=== PATIENT | female | born 1950 | race Caucasian/White ===

== ENCOUNTER → 2019-04-18 | Outpatient (CLI) | payer MEDICARE ==
--- NOTE | 2019-04-18 12:33 | FL ---
EXAMINATION TYPE: FL barium swallow DATE OF EXAM: 04/18/2019 CLINICAL HISTORY: Gastroesophageal reflux TECHNIQUE: A double contrast esophagram is performed utilizing air and barium. A total of 59 second s of fluoroscopic time was utilized during procedure. 39 fluoroscopic images were saved during the ex amination. COMPARISON: None FINDINGS: The esophagus shows normal motility however there is delayed emptying into the stomach as t here is accumulation persistently throughout the examination within a small hiatal hernia. No tertiar y contractions are seen. Incidentally noted cricopharyngeal bar. Moderate grade gastroesophageal refl ux was seen on real-time examination in the supine position. No stricture is noted. Esophageal mucosa appears overall smooth. IMPRESSION: 1. Small hiatal hernia with moderate gastroesophageal reflux. 2. Incidentally noted cricopharyngeal bar.
== END | disposition home or self-care (01) ==
LOC: RADUSWWP 10:02
PROVIDERS: ATTEND Surgery Plastic and Reconstructive Surgery
DX: K44.9 Diaphragmatic hernia without obstruction or gangrene (principal); K21.9 Gastro-esophageal reflux disease without esophagitis; Z01.810 Encounter for preprocedural cardiovascular examination
CPT/HCPCS: 74220; 93005

== ENCOUNTER 2019-05-23 08:30 | Day surgery (SDC) | payer MEDICARE ==
[2019-05-21 11:23] VITALS: BMI 30.2
--- NOTE | 2019-05-23 05:12 | P.GSHP ---
History of Present Illness H&P Date: 05/23/19 CHIEF COMPLAINT: GERD HISTORY OF PRESENT ILLNESS: The patient is a 68-year-old female who presents reports gastroesophageal reflux disease. Upper endoscopy was offered for further evaluation and management. PAST MEDICAL HISTORY: Please see list. PAST SURGICAL HISTORY: Please see list. MEDICATIONS: Please see list. ALLERGIES: Please see list. SOCIAL HISTORY: No illicit drug use FAMILY HISTORY: No reports of Crohn disease or ulcerative colitis. REVIEW OF ORGAN SYSTEMS: CONSTITUTIONAL: No reports of fevers or chills. GI: Denies any blood in stools or constipation. PHYSICAL EXAM: VITAL SIGNS: Stable GENERAL: Well-developed and pleasant in no acute distress. HEENT: No scleral icterus. Extraocular movements grossly intact. Moist buccal mucosa. NECK: Supple without lymphadenopathy. CHEST: Unlabored respirations. Equal bilateral excursions. CARDIOVASCULAR: Regular rate and rhythm. Distal 2+ pulses. ABDOMEN: Soft, nondistended. MUSCULOSKELETAL: No clubbing, cyanosis, or edema. ASSESSMENT: 1. Gastroesophageal reflux disease PLAN: 1. Recommend proceeding with an upper endoscopy Past Medical History Past Medical History: Cancer, GERD/Reflux, Hearing Disorder / Deafness, Hyperlipidemia, Osteoarthritis (OA) Additional Past Medical History / Comment(s): BREAST CANCER,CERVICAL CANCER, UTERINE CANCER, [place] History of Any Multi-Drug Resistant Organisms: None Reported Past Surgical History: Breast Surgery, Hysterectomy, Tonsillectomy Additional Past Surgical History / Comment(s): LIPOMA REMOVED FROM UPPER BACK,LEFT LUMPECTOMY, EAR SURGERY RIGHT AND LEFT, CATARACT RIGHT EYE WITH IMPLANT Past Anesthesia/Blood Transfusion Reactions: No Reported Reaction Smoking Status: Former smoker - Past Family History Mother Family Medical History: Cancer Father Family Medical History: Cancer Sister(s) Family Medical History: Cancer Medications and Allergies Home Medications Medication Instructions Recorded Confirmed Type Fosamax Unknown Dose 1 tab PO BLACK 05/21/19 History Levothyroxine Sodium [Synthroid] 150 mcg PO DAILY 05/21/19 05/21/19 History Omeprazole [PriLOSEC] 20 mg PO AC-BID 05/21/19 05/21/19 History Pravastatin Sodium [Pravachol] 20 mg PO HS 05/21/19 05/21/19 History Allergies Allergy/AdvReac Type Severity Reaction Status Date / Time No Known Allergies Allergy Verified 05/21/19 10:56
[~2019-05-23 08:30] MED LIST: LACTATED RINGERS 1,000 ML IV SCH; LIDOCAINE 1% 20 ML VIAL (10MG/ML) FOR IV START INTRADERMA PRN
[2019-05-23] MEDS ORDERED: PROPOFOL 10 MG/ML 20 ML VIAL IV ONE (09:14)
--- NOTE | 2019-05-23 09:35 | P.PCN ---
Date of Procedure: 05/23/19 Description of Procedure: PREOPERATIVE DIAGNOSIS: Gastroesophageal reflux disease. Hiatal hernia POSTOPERATIVE DIAGNOSIS: Gastroesophageal reflux disease. Diaphragmatic hiatal hernia Anguiano's esophagus OPERATION: Esophagogastroduodenoscopy with biopsies along antrum and distal esophagus SURGEON: Kimber Rodriguez MD ANESTHESIA: MAC. INDICATIONS: The patient is a 68-year-old female who presents with a history of reflux disease. Benefits and risks of the procedure were described. Informed consent was obtained. DESCRIPTION: The patient was brought into the endoscopy suite and laid in the left lateral decubitus position. An Olympus gastroscope was passed along the posterior oropharynx down to the distal esophagus where the squamocolumnar junction was encountered at 34 cm from the incisors. The stomach was entered and no bile reflux was found. Additional findings are listed below. Biopsies with cold forceps were obtained of the antrum. The first through third portion of the duodenum was examined and unremarkable. Retroflexion of the scope confirmed Hill grade 4 lower esophageal valve. The squamocolumnar junction demonstrated LA grade D erosive esophagitis. The stomach was desufflated. The patient tolerated the procedure well. FINDINGS: Squamocolumnar junction 34 cm from the incisors. Diaphragmatic hiatus at 37 cm. Hiatal hernia, 3 cm Hill grade 4 lower esophageal valve. LA grade D erosive esophagitis. No active duodenitis. Chronic gastritis RECOMMENDATIONS: Recommend hiatal hernia repair with Anguiano's esophagus Plan - Discharge Summary Discharge Rx Participant: No New Discharge Prescriptions: No Action Omeprazole [PriLOSEC] 20 mg PO AC-BID Pravastatin Sodium [Pravachol] 20 mg PO HS Levothyroxine Sodium [Synthroid] 150 mcg PO DAILY Fosamax Unknown Dose 70 mg PO WEEKLY Discharge Medication List Fosamax Unknown Dose 70 mg PO WEEKLY 05/21/19 [History] Levothyroxine Sodium [Synthroid] 150 mcg PO DAILY 05/21/19 [History] Omeprazole [PriLOSEC] 20 mg PO AC-BID 05/21/19 [History] Pravastatin Sodium [Pravachol] 20 mg PO HS 05/21/19 [History] Follow up Appointment(s)/Referral(s): Kimber Rodriguez MD [STAFF PHYSICIAN] - 05/29/19 Patient Instructions/Handouts: Anguiano Esophagus (DC), Hiatal Hernia (DC) Discharge Disposition: HOME SELF-CARE
[2019-05-23 09:47] VITALS: RESP 16
[2019-05-23 09:58] VITALS: BP 135/66; PULSE 70
== END 2019-05-23 10:17 | disposition home or self-care (01) ==
LOC: ORWHC2ENDO 08:30
PROVIDERS: ATTEND Surgery Plastic and Reconstructive Surgery
DX: K29.50 Unspecified chronic gastritis without bleeding (principal); K22.70 Barrett's esophagus without dysplasia; K21.0 Gastro-esophageal reflux disease with esophagitis; K44.9 Diaphragmatic hernia without obstruction or gangrene; H91.90 Unspecified hearing loss, unspecified ear; E78.5 Hyperlipidemia, unspecified; M19.90 Unspecified osteoarthritis, unspecified site; Z87.891 Personal history of nicotine dependence; Z85.3 Personal history of malignant neoplasm of breast; Z85.41 Personal history of malignant neoplasm of cervix uteri; Z85.42 Personal history of malignant neoplasm of other parts of uterus; Z98.890 Other specified postprocedural states; Z90.710 Acquired absence of both cervix and uterus; Z90.89 Acquired absence of other organs; Z98.41 Cataract extraction status, right eye; Z96.1 Presence of intraocular lens; Z79.83 Long term (current) use of bisphosphonates; Z79.890 Hormone replacement therapy; Z79.899 Other long term (current) drug therapy; Z80.9 Family history of malignant neoplasm, unspecified
CPT/HCPCS: 88305; 88342; 43239; J2704

== ENCOUNTER → 2019-07-23 | Outpatient (CLI) | payer MEDICARE ==
[2019-07-23 09:40] LABS: HCT 44.5 % (34.0-46.0); HGB 14.4 gm/dL (11.4-16.0); MCH 29.9 pg (25.0-35.0); MCHC 32.4 g/dL (31.0-37.0); MCV 92.3 fL (80.0-100.0); Mean Platelet Volume 7.2; Platelet Count 283 k/uL (150-450); RBC 4.82 m/uL (3.80-5.40); RDW 12.7 % (11.5-15.5); WBC 7.4 k/uL (3.8-10.6)
== END | disposition home or self-care (01) ==
LOC: LABPAT 08:49
PROVIDERS: ATTEND Anesthesiology
DX: Z01.812 Encounter for preprocedural laboratory examination (principal)
CPT/HCPCS: 36415; 85027

== ENCOUNTER 2019-07-27 11:58 | Day surgery (SDC) | payer MEDICARE ==
--- NOTE | 2019-07-26 20:25 | P.GSHP ---
History of Present Illness H&P Date: 07/27/19 CHIEF COMPLAINT: Paraesophageal hiatal hernia with gastroesophageal reflux disease. HISTORY OF PRESENT ILLNESS: The patient is a 68-year-old female who presents with paraesophageal hiatal hernia. She has completed an esophageal manometry including upper endoscopy workup. Now she presents for surgical intervention. PAST MEDICAL HISTORY: Please see list. PAST SURGICAL HISTORY: Please see list. MEDICATIONS: Please see list. ALLERGIES: Please see list. SOCIAL HISTORY: No illicit drug use FAMILY HISTORY: No reports of Crohn disease or ulcerative colitis. REVIEW OF ORGAN SYSTEMS: CONSTITUTIONAL: No reports of fevers or chills. GI: Denies any blood in stools or constipation. PHYSICAL EXAM: VITAL SIGNS: Stable GENERAL: Well-developed pleasant and in no acute distress. HEENT: No scleral icterus. Extraocular movements grossly intact. Moist buccal mucosa. NECK: Supple without lymphadenopathy. CHEST: Unlabored respirations. Equal bilateral excursions. CARDIOVASCULAR: Regular rate and rhythm. Distal 2+ pulses. ABDOMEN: Soft, nondistended. No peritoneal signs. MUSCULOSKELETAL: No clubbing, cyanosis, or edema. SKIN: Well-perfused. Good skin turgor. MANOMETRY: Shows no evidence of achalasia or scleroderma. ASSESSMENT: 1. Diaphragmatic paraesophageal hiatal hernia with severe gastroesophageal reflux disease. PLAN: 1. Recommend proceeding with a robotic paraesophageal hiatal hernia with possible mesh. 2. Benefits and risks of surgical intervention was discussed including possibility of open technique. 3. Inpatient hospitalization recommended of 2 nights 4. DVT prophylaxis. 5. Antibiotic prophylaxis. 6. She has also completed a very low caloric high-protein diet to address underlying hepatomegaly. Past Medical History Past Medical History: Cancer, GERD/Reflux, Hearing Disorder / Deafness, Hyperlipidemia, Osteoarthritis (OA), Thyroid Disorder Additional Past Medical History / Comment(s): BREAST CANCER,CERVICAL CANCER, UTERINE CANCER, [place] History of Any Multi-Drug Resistant Organisms: None Reported Past Surgical History: Breast Surgery, Hysterectomy, Tonsillectomy Additional Past Surgical History / Comment(s): LIPOMA REMOVED FROM UPPER BACK,LEFT LUMPECTOMY, EAR SURGERY RIGHT AND LEFT, CATARACT RIGHT EYE WITH IMPLANT, egd Past Anesthesia/Blood Transfusion Reactions: No Reported Reaction Smoking Status: Former smoker - Past Family History Mother Family Medical History: Cancer Father Family Medical History: Cancer Sister(s) Family Medical History: Cancer Medications and Allergies Home Medications Medication Instructions Recorded Confirmed Type Levothyroxine Sodium [Synthroid] 150 mcg PO DAILY 05/21/19 07/20/19 History Omeprazole [PriLOSEC] 20 mg PO AC-BID 05/21/19 07/20/19 History Pravastatin Sodium [Pravachol] 20 mg PO DAILY 05/21/19 07/20/19 History Alendronate Sodium [Fosamax] 70 mg PO TH 07/20/19 07/20/19 History Allergies Allergy/AdvReac Type Severity Reaction Status Date / Time No Known Allergies Allergy Verified 05/21/19 10:56
[~2019-07-27 11:58] MED LIST changes: +CHLORHEXIDINE GLUCONATE 15 ML CUP MUCOUS MEM ONE; +DEXAMETHASONE SOD PHOSPHATE 10 MG/ML 1 ML VIAL IV ONE; +HEPARIN SODIUM,PORCINE 5,000 UNIT/ML 1 ML VIAL SQ ONE; +HYDROmorphone 0.5 MG/0.5 ML SYRINGE IVP PRN; -LACTATED RINGERS 1,000 ML IV SCH; +ONDANSETRON 4 MG/2 ML VIAL IVP ONE; +PANTOPRAZOLE 40 MG/10 ML VIAL IV STA; +SCOPOLAMINE 1.5MG/72HR PATCH TRANSDERM STA; +fentaNYL (PF) 50 MCG/ML 2 ML AMP IV PRN
[2019-07-27] MEDS: LACTATED RINGERS 1,000 ML IV SCH ×2 (12:49→23:53)
[2019-07-27] MEDS ORDERED: ROCURONIUM BROMIDE 10 MG/ML 10 ML VIAL IV ONE (13:33)
[2019-07-27] MEDS ORDERED: fentaNYL (PF) 50 MCG/ML 2 ML AMP ONE (13:33)
[2019-07-27] MEDS ORDERED: ePHEDrine SULFATE/0.9% NACL/PF 50 MG/5 ML SYRINGE IV ONE (13:33)
[2019-07-27] MEDS ORDERED: PROPOFOL 10 MG/ML 20 ML VIAL IV ONE (13:33)
[2019-07-27] MEDS ORDERED: NEOSTIGMINE 1 MG/ML 10 ML VIAL ONE (13:33)
[2019-07-27] MEDS ORDERED: WATER FOR INJECTION, STERILE 10 ML VIAL IV ONE (13:33)
[2019-07-27] MEDS ORDERED: GLYCOPYRROLATE 0.2 MG/ML 2 ML VIAL ONE (13:33)
[2019-07-27] MEDS ORDERED: MIDAZOLAM 2 MG/2 ML VIAL ONE (13:33)
[2019-07-27] MEDS ORDERED: SUCCINYLCHOLINE CHLORIDE 100 MG/5 ML SYR IV ONE (13:33)
[2019-07-27] MEDS ORDERED: LIDOCAINE 1% INJ 10MG/ML (20 ML MDV) ONE (13:33)
[2019-07-27 13:35] LABS: African American GFR (CKD) >90 (>60 ml/min/1.73 sqM); Anion Gap 10 mmol/L; Blood Urea Nitrogen 15 mg/dL (7-17); Calcium 9.4 mg/dL (8.4-10.2); Carbon Dioxide 22 mmol/L (22-30); Chloride 108 mmol/L (98-107); Glucose 107 mg/dL (74-99); Non-African American GFR(CKD) >90 (>60 ml/min/1.73 sqM); Sodium 140 mmol/L (137-145)
[2019-07-27] MEDS ORDERED: BUPIVACAIN-EPI 0.25%-1:200,000 30 ML VIAL SQ ONE (13:58)
[2019-07-27] MEDS ORDERED: LACTATED RINGERS 1,000 ML IV ONE ×2 (14:52)
--- NOTE | 2019-07-27 15:40 | P.OP ---
Date of Procedure: 07/27/19 Description of Procedure: SURGEON: BHARATI RODRIGUEZ MD PREOPERATIVE DIAGNOSES: 1. Symptomatic paraesophageal diaphragmatic hiatal hernia. 2. Gastroesophageal reflux disease. 3. Anguiano's esophagus 4. Hypothyroidism 5. Osteoporosis 6. History of uterine cancer 7. Dysphagia POSTOPERATIVE DIAGNOSES: 1. Symptomatic paraesophageal diaphragmatic hiatal hernia, incarcerated 5 x 4 cm 2. Gastroesophageal reflux disease. 3. Anguiano's esophagus 4. Hypothyroidism 5. Osteoporosis 6. History of uterine cancer 7. Dysphagia OPERATION: 1. Robotic-assisted da Leilani Xi laparoscopic repair of incarcerated paraesophageal hiatal hernia, 5 x 4 cm, with Luverne Biopatch A 8 x 8 cm. 2. Intraoperative esophagogastroduodenoscopy 3. Placement of esophageal bougie, 56Fr ANESTHESIA: General with local anesthetic. ESTIMATED BLOOD LOSS: 10 mL SPECIMENS REMOVED: 1. Mediastinal and distal esophageal mass 5 cm COMPLICATIONS: None. Condition: stable Disposition: floor FINDINGS: 1. Midline incarcerated paraesophageal hiatal hernia 5 x 4 cm 2. Intraoperative upper endoscopy confirms complete closure of hiatal hernia from Hill grade 4 to Hill grade 1 3. No duodenal or gastric ulcers 4. Hiatus at 35 cm 5. Anguiano's esophagus, over 3 cm segment INDICATIONS: The patient is a 68-year-old female who presents with regurgitation, gastroesophageal reflux disease poorly controlled despite medications, and a symptomatic diaphragmatic hiatal hernia. Preoperative workup including upper endoscopy demonstrated a Hill grade 4 lower esophageal valve. Given the severity of symptoms, she had elected for surgical intervention. Benefits and risks including bleeding, infection, recurrence, dysphagia, injury to the lung, need for further surgery was described at length. Informed consent was obtained. DESCRIPTION: The patient was brought into the operating room and placed in supine position. Preoperatively she had received heparin subcutaneously for DVT prophylaxis. After general induction, the abdomen was prepped and draped in standard sterile fashion. The patient had previously voided prior to coming to the operating room. Ioban draping was placed along the abdomen. A timeout protocol was confirmed with the surgical team, for which the patient's name, procedure to be performed including DVT prophylaxis with bilateral SCDs, and preoperative antibiotics were also confirmed. A robotic da Leilani Xi system was prepped and primed. At 12 cm from the xiphoid to just below the umbilicus, proposed port sites were marked with indelible marker along the left axillary line, left mid-clavicular line with each ports were marked 10 cm from each other. A 5 mm 0 degrees l aparoscopic trocar entry was performed along the left upper quadrant. The abdomen was insufflated to 15 mmHg pressure was tolerated well. Diagnostic laparoscopy demonstrated no injury to bowel, viscera, or mesentery. No injury had occurred to the small bowel or viscera. Next, one 8 mm robotic port was placed along the right upper abdomen. An 8-mm port was were placed along the left lateral abdominal wall. The camera 8-mm port was maintained along the epigastrium via the hernia defect. Another 12 mm port was placed along the left upper abdominal wall after exchanging the 5 mm port. Please note that the ports were placed at least 20 cm away from the target anatomy. Care was taken to check that each robotic arm were safely away from collision with the bed or the patient. At the epigastrium, a medium sized Danae liver retractor was placed under direct visualization with the [employer] Tester placed under the right shoulder of the patient. All robotic arms were used. The patient was repositioned in reverse Trendelenburg position at 16-degrees after lowering the bed. The robot was docked above the right side of the patient. Using a grasper for arm 3, a grasper for arm 1, including vessel sealer for arm 2, the robotic system was docked and primed as described. Instruments were interchanged by the environmental engineering assistant. I had sat at the console. The gastrohepatic ligament was cleaved using a vessel sealer. Next, the phrenoesophageal ligament was mobilized and the distal esophagus was mobilized circumferentially. The left and right crura was identified. Circumferentially, the hernia sac was excised and brought into the peritoneal cavity. Moderate dissection into the mediastinum was performed to release the esophagus into the abdominal cavity. The paraesophageal hiatal hernia sac was also incised and divided from the esophagus. Care was taken to avoid any gastrotomy. The measured defect was consistent with 5 cm axial length and 4 cm in width. After dissection, the distal esophagus of 3 cm was brought into the abdominal cavity. Once the hiatus and crura was dissected, 2-0 VLOC suture was placed to reapproximate the diaphragmatic hiatus posteriorly. To buttress the repair, a Lu[place] Biopatch A was prepared along the back table and cut in half of a bernabe-hole fashion as to reinforce the repair as an underlay. The mesh was placed along the crural repair and tagged using horizontal mattress sutures using 2-0 VLOC. I went to the head of the bed to perform intraoperative esophagogastroduodenoscopy and placement of a 56Fr bougie. The bougie was passed without difficulty to address pre-existing dysphagia and esophageal dysmotility. An Olympus gastroscope was passed through posterior oropharynx. Retroflexion of the scope confirmed a Hill grade 1 lower esophageal valve. The stomach had been desufflated. No evidence of leaks were found of the esophagus or stomach. The squamocolumnar junction and hiatus was placed at 35 cm from the incisors. The GI tract with desufflated This concluded the endoscopic portion of the case. The robot was undocked from the patient. I re-scrubbed into the case. All instruments and pneumoperitoneum and specimens were evacuated from the abdominal cavity. Incisions were reapproximated using 4-0 Monocryl in an interrupted subcuticular fashion. Liquid glue was applied to the skin. Local anesthetic was infiltrated in all wounds for postop analgesia. Multiple intra-abdominal films were obtained. At the end of the procedure, needle, sponge, and instrument count was verified correct by the nursing surgical services director. The patient had tolerated the procedure well and was taken to the postanesthesia unit in stable condition. Intraoperative films were reviewed with the patient's family who was pleased with the level of care. Console time 49 minutes.
[2019-07-27] MEDS ORDERED: ACETAMINOPHEN ORAL SUSP 160 MG/5 ML CUP PO PRN (15:42)
[2019-07-27] MEDS ORDERED: HYDROmorphone 1 MG/ML 1 ML SYRINGE IVP PRN (15:44)
[2019-07-27] MEDS ORDERED: SCOPOLAMINE 1.5MG/72HR PATCH TRANSDERM ONE (17:00)
[2019-07-27] MEDS: SODIUM CHLORIDE 0.9% 1,000 ML IV SCH ×2 (17:51→20:46)
[2019-07-27] MEDS: SIMETHICONE 40 MG/0.6 ML DROPS 2,000 MG/30 ML BOTTLE PO SCH ×2 (17:56→20:09)
[2019-07-27] MEDS: KETOROLAC 30 MG/ML 1 ML VIAL IVP SCH ×2 (17:57→23:54)
[2019-07-27] MEDS: DEXAMETHASONE SOD PHOSPHATE 4 MG/ML 1 ML VIAL IV SCH (17:58)
[2019-07-27] MEDS: ONDANSETRON 4 MG/2 ML VIAL IVP SCH ×2 (17:59→23:57)
[2019-07-28] MEDS: DEXAMETHASONE SOD PHOSPHATE 4 MG/ML 1 ML VIAL IV SCH ×3 (00:04→11:19)
[2019-07-28] MEDS: KETOROLAC 30 MG/ML 1 ML VIAL IVP SCH ×2 (05:31→11:21)
[2019-07-28] MEDS: ONDANSETRON 4 MG/2 ML VIAL IVP SCH ×2 (05:40→11:19)
[2019-07-28] MEDS ORDERED: LEVOTHYROXINE 75 MCG TAB PO SCH (06:30)
[2019-07-28 07:29] LABS: African American GFR (CKD) >90 (>60 ml/min/1.73 sqM); Anion Gap 5 mmol/L; Blood Urea Nitrogen 10 mg/dL (7-17); Calcium 8.5 mg/dL (8.4-10.2); Carbon Dioxide 26 mmol/L (22-30); Chloride 111 mmol/L (98-107); Glucose 144 mg/dL (74-99); Non-African American GFR(CKD) >90 (>60 ml/min/1.73 sqM); Potassium 4.3 mmol/L (3.5-5.1); Sodium 142 mmol/L (137-145)
[2019-07-28 07:45] VITALS: BP 116/76; PULSE 92; RESP 17; TEMP 97.7
--- NOTE | 2019-07-28 07:46 | FL ---
EXAMINATION TYPE: FL esophagus cervic/pharynx DATE OF EXAM ORDERED: 07/28/2019 7:30 AM HISTORY: Status post Monica fundoplication. COMPARISON: None. FINDINGS: The patient drank contrast with ease. There is prompt egress of contrast from the esophagu s into the stomach. There is no evidence of extravasation or significant free air. The ligament of Tr eitz is in the normal location. IMPRESSION: STATUS POST MONICA FUNDOPLICATION.
[2019-07-28] MEDS ORDERED: ENOXAPARIN 30 MG/0.3 ML SYRINGE SQ SCH (09:00)
[2019-07-28] MEDS ORDERED: PANTOPRAZOLE 40 MG/10 ML VIAL IVP SCH (09:00)
[2019-07-28] MEDS: SIMETHICONE 40 MG/0.6 ML DROPS 2,000 MG/30 ML BOTTLE PO SCH ×2 (09:04→11:21)
[2019-07-28] MEDS: SODIUM CHLORIDE 0.9% 1,000 ML IV SCH (09:05)
--- NOTE | 2019-07-28 12:00 | P.DS ---
Providers Date of admission: 07/27/2019 Expected date of discharge: 07/28/19 Attending physician: Kimber Rodriguez Primary care physician: [facility] Course: This is a 69-year-old female who underwent laparoscopic robotic Hiatal hernia with Dr. Newby. Patient did well postoperative. Please see hospital chart for details. Patient Condition at Discharge: Good Plan - Discharge Summary Discharge Rx Participant: No New Discharge Prescriptions: New Bisacodyl [Dulcolax] 5 mg PO DAILY PRN #10 tablet. PRN Reason: Constipation Simethicone 40 mg/0.6 ml Drops [Mylicon Drops] 40 mg PO PCHS PRN #30 ml PRN Reason: Gas Omeprazole 40 mg PO DAILY #30 capsule. Ondansetron Odt [Zofran Odt] 4 mg PO Q8HR PRN #9 tab PRN Reason: Nausea Acetaminophen Oral Susp [Tylenol Oral Susp] 500 mg PO Q4-6H PRN #400 ml PRN Reason: Pain Continue Pravastatin Sodium [Pravachol] 20 mg PO DAILY Levothyroxine Sodium [Synthroid] 150 mcg PO DAILY Alendronate Sodium [Fosamax] 70 mg PO TH Discontinued Omeprazole [PriLOSEC] 20 mg PO AC-BID Discharge Medication List Levothyroxine Sodium [Synthroid] 150 mcg PO DAILY 05/21/19 [History] Pravastatin Sodium [Pravachol] 20 mg PO DAILY 05/21/19 [History] Alendronate Sodium [Fosamax] 70 mg PO TH 07/20/19 [History] Acetaminophen Oral Susp [Tylenol Oral Susp] 500 mg PO Q4-6H PRN #400 ml 07/27/19 [Rx] Bisacodyl [Dulcolax] 5 mg PO DAILY PRN #10 tablet. 07/27/19 [Rx] Omeprazole 40 mg PO DAILY #30 capsule. 07/27/19 [Rx] Ondansetron Odt [Zofran Odt] 4 mg PO Q8HR PRN #9 tab 07/27/19 [Rx] Simethicone 40 mg/0.6 ml Drops [Mylicon Drops] 40 mg PO PCHS PRN #30 ml 07/27/19 [Rx] Follow up Appointment(s)/Referral(s): Kimber Rodriguez MD [STAFF PHYSICIAN] - 07/31/19 Patient Instructions/Handouts: Laparoscopic Hiatal Hernia Repair (DC) Activity/Diet/Wound Care/Special Instructions: Liquid diet only. No carbonated beverages. No straws. No lifting over 4 pounds in 4 weeks, Aug 27. May shower. No bath tub soaks. May take [id number] Tylenol or Aleve for pain. Do not remove scopolamine patch for 3 days, if present Discharge Disposition: HOME SELF-CARE
[2019-07-28 14:17] VITALS: BMI 28.2
== END 2019-07-28 15:46 | disposition home or self-care (01) ==
LOC: OR 11:58 → 4SSUR 15:37 → OR 07-28 15:46
PROVIDERS: ATTEND Surgery Plastic and Reconstructive Surgery
DX: K44.9 Diaphragmatic hernia without obstruction or gangrene (principal); K21.9 Gastro-esophageal reflux disease without esophagitis; K22.70 Barrett's esophagus without dysplasia; E78.5 Hyperlipidemia, unspecified; R16.0 Hepatomegaly, not elsewhere classified; E03.9 Hypothyroidism, unspecified; M81.0 Age-related osteoporosis without current pathological fracture; M19.90 Unspecified osteoarthritis, unspecified site; H91.90 Unspecified hearing loss, unspecified ear; Z85.3 Personal history of malignant neoplasm of breast; Z85.41 Personal history of malignant neoplasm of cervix uteri; Z85.42 Personal history of malignant neoplasm of other parts of uterus; Z79.890 Hormone replacement therapy; Z79.899 Other long term (current) drug therapy; Z98.890 Other specified postprocedural states; Z90.710 Acquired absence of both cervix and uterus; Z98.41 Cataract extraction status, right eye; Z96.1 Presence of intraocular lens; Z87.891 Personal history of nicotine dependence; Z80.9 Family history of malignant neoplasm, unspecified
CPT/HCPCS: 80048 ×2; 74210; 43282; C1781; J2250; J1644; J1100 ×3; J2710; J0690 ×2; J2405 ×2; J2001; J3010; J1885 ×2; J1650; J0330; J2704; C9113 ×2; Q9967

== ENCOUNTER → 2022-12-16 | Day surgery (SDC) | payer MEDICARE ==
[2022-12-16 07:32] VITALS: RESP 16
--- NOTE | 2022-12-16 08:48 | P.GSHP ---
History of Present Illness H&P Date: 12/16/22 Chief Complaint: Right breast microcalcifications of concern on radiograph from [id number] Kassandra is a 71-year-old white female seen in consultation for Jessica Lucio regarding calcifications of concern on a right breast mammogram performed in May 2022. She had a bilateral mammogram on which led to additional views of the right breast. The patient states she then went to [place]; and in [place] she had a repeat right breast mammogram, they also did an ultrasound. She was told to wait 6 months to see if it changed. This was done in October 2022. She presents here today for further evaluation of the calcifications which had originally been noted on the May mammogram of her right breast. The patient does not feel any lumps masses or nodules of concern in either breast. She has had a left breast lumpectomy and sentinel node biopsy in approximately 1993, she does not remember who the surgeon was at this stage of the disease.. She did receive radiation therapy. She did not receive any chemotherapy or hormone therapy. She is not following with any bibliographic services specialist with respect to this. She has not had any other surgery on her breasts. She is not complaining of any recent trauma or infection of the breast. Caffeine: coffee 4 cups/day nicotine: none stopped in 2009 used to smoke 1 Pack/week chocolate: occasional BCP: about 2 years Family History: mother: at 35 ? type think stomach cancer father: colon, thyroid, and a third type ? type sister: pancreatic within 3 weeks Hormonal History: menarche: 15 breast fed: no, age at first : 23 menopause: hysterectomy at 46 took ovaries, done for precancer Surgical History: Right eye cataract lens implant Left breast lumpectomy and sentinel node biopsy Total abdominal hysterectomy Lipoma posterior neck Bilateral ear surgery for tumors Hiatal hernia Tonsillectomy Medical History: hypothryoid decreased hearing GERD high cholesterol Social History: nicotine: as above alcohol: 2/year drugs:none - Constitutional Constitutional: Denies chills, Denies fever - EENT Eyes: right as per HPI Ears: bilateral: decreased hearing, tinnitus Ears, nose, mouth and throat: Denies headache, Denies sore throat - Breasts Breasts: bilateral: as per HPI - Cardiovascular Cardiovascular: Reports shortness of breath - Respiratory Respiratory: Denies cough, Denies 7 - Gastrointestinal Gastrointestinal: Reports as per HPI - Genitourinary (Female) Genitourinary: Denies dysuria, Denies hematuria - Menstruation Menstruation: Reports post hysterectomy - Musculoskeletal Musculoskeletal: Reports myalgias - Integumentary Integumentary: Reports pruritus, Reports rash - Neurological Neurological: Denies numbness, Denies weakness - Psychiatric Psychiatric: Denies anxiety, Denies depression - Endocrine Endocrine: Reports as per HPI - Hematologic/Lymphatic Comment: none - Allergic/Immunologic Allergic/Immunologic: Reports seasonal allergies Past Medical History Past Medical History: Cancer, GERD/Reflux, Hearing Disorder / Deafness, Hyperlipidemia, Osteoarthritis (OA), Thyroid Disorder Additional Past Medical History / Comment(s): Left BREAST CANCER,CERVICAL CANCER, UTERINE CANCER, [place] History of Any Multi-Drug Resistant Organisms: None Reported Past Surgical History: Breast Surgery, Hysterectomy, Tonsillectomy Additional Past Surgical History / Comment(s): LIPOMA REMOVED FROM UPPER BACK,LEFT LUMPECTOMY with radiation. EAR SURGERY RIGHT AND LEFT, CATARACT RIGHT EYE WITH IMPLANT, egd Past Anesthesia/Blood Transfusion Reactions: No Reported Reaction Past Psychological History: No Psychological Hx Reported Smoking Status: Former smoker Past Alcohol Use History: Rare Additional Past Alcohol Use History / Comment(s): STARTED SMOKING AT AGE 17 SMOKED ON AND OFF QUIT SMOKING 2000 SMOKED 1 CIG A DAY Past Drug Use History: None Reported - Past Family History Mother Family Medical History: Cancer Father Family Medical History: Cancer Sister(s) Family Medical History: Cancer Medications and Allergies Home Medications Medication Instructions Recorded Confirmed Type Levothyroxine Sodium [Synthroid] 88 mcg PO DAILY 05/21/19 12/16/22 History Pravastatin Sodium [Pravachol] 20 mg PO DAILY 05/21/19 12/16/22 History Omeprazole 40 mg PO DAILY #30 capsule. 07/27/19 12/16/22 Rx Allergies Allergy/AdvReac Type Severity Reaction Status Date / Time No Known Allergies Allergy Verified 12/16/22 07:19 Surgical - Exam Vital Signs Temp Pulse Resp BP 97.6 F 69 16 118/80 12/16/22 07:21 12/16/22 07:21 12/16/22 07:21 12/16/22 07:21 - General no distress - Eyes normal ocular movement - ENT decreased hearing - Neck trachea midline - Respiratory normal respiratory effort, clear to auscultation - Cardiovascular Rhythm: regular Heart Sounds: normal: S1, S2 - Abdomen Abdomen: soft, non tender, no guarding, no rigid, no rebound - Integumentary normal turger - Neurologic no disoriented, no combative - Musculoskeletal normal gait - Psychiatric oriented to time, oriented to person, oriented to place, speech is normal, memory intact Breast Exam: BRA: 38C Inspection: Left breast smaller than right breast related to prior lumpectomy and radiation therapy, right nipple inversion Palpation: Right breast: Multi-positional examination no dominant masses or nodules of concern, dense breast Right axilla: No adenopathy of concern, nipple is inverted on the right Left breast: Post surgical and radiation changes, multiple positional exam no dominant masses or nodules of concern Left axilla: No adenopathy of concern Results Mammogram is been repeated today this is going to be reviewed Assessment and Plan Assessment: Impression: Patient with a prior history of left breast cancer pathology will be requested Abnormal right breast mammogram this is been repeated today and will be reviewed Strong family history of cancer Plan: Depending on results of mammogram today potential stereotactic core biopsy of the right breast Patient is going to have genetic testing secondary to strong family history of cancer Risks and benefits of stereotactic core biopsy of been discussed with the patient, her sister, and her daughter. Risks include but are not limited to bleeding, infection, reaction to the anesthetic. The patient understands of the tissue sample were to be discordant and its possible to further tissue sampling would be necessary. CC: Jessica Lucio
[2022-12-16 09:54] VITALS: BP 138/83; PULSE 67; TEMP 98.1
--- NOTE | 2022-12-16 16:50 | MM ---
Reason for Exam: Follow-up at short interval from prior study. Last screening mammogram was performed 3 month(s) ago. Patient History: Menarche at age 15. First Full-Term at age 23. Left ovary removed at age 46. Right ovary removed at age 46. Hysterectomy at age 46. Postmenopausal. Breast cancer, left, age 43. Ovarian cancer, age 46. Breast cancer, left, age 42. Previous chest radiation therapy at age 43. 1993, Malignant Excisional Biopsy on the left side. Prior Study Comparison: 09/08/2022 Right Diagnostic Mammogram, [facility]. Tissue Density: Right: The breast tissue is heterogeneously dense. This may lower the sensitivity of mammography. Findings: Analyzed By CAD. 3 groups of microcalcifications are demonstrated. The 3:00, more superiorly located group of microcalcifications middle to posterior depth is targeted for biopsy via a medial approach as magnification views shows additional faint calcifications in this region. Exam is again reviewed after the patient's biopsy. We see that the biopsy clip is in appropriate position. The other 2 groups are more coarse and can be reassessed at follow-up. Overall Assessment: Suspicious, BI-RAD 4 Management: Stereotactic Core Biopsy of the right breast. Electronically signed and approved by: Anusha Zuniga M.D. Radiologist
--- NOTE | 2022-12-20 10:03 | MM ---
Date of Procedure: 12/16/22 Preoperative Diagnosis: Microcalcifications of concern medial aspect right breast Postoperative Diagnosis: Same Procedure(s) Performed: Right breast stereotactic core biopsy Anesthesia: local Surgeon: Davina Ford Pathology: other (Breast tissue with microcalcifications of concern identified, the coarse calcifications were seen smaller calcifications were not as well seen and this was reviewed with radiology and it was felt the area of concern had been adequately sampled) Condition: stable Disposition: same day Indications for Procedure: Microcalcifications of concern right breast Operative Findings: Radiographic specimen reveals microcalcifications of concern Description of Procedure: The patient was brought to the stereotactic core biopsy room. She was positioned prone on the lo-rad table. A rotor assembler film was obtained. A medial to lateral approach was utilized. The area of concern was identified. The lesion was targeted. The breast was prepped using Betadine. 10 mL of 1% lidocaine and 20 mL of half percent lidocaine with epinephrine was used to anesthetize the area of concern. A 9-gauge vacuum-assisted core rotating biopsy needle was driven to the correct coordinates. A prefire film was obtained and the needle was noted to be in the correct location. The needle was fired. A post-fire film was obtained and the needle was noted to be in the correct location. 13 core biopsy specimens were obtained. Radiograph of the specimen revealed the calcifications of concern. The specimen was reviewed with Dr. Zuniga from radiology as coarse calcifications were seen best in our biopsy specimen. He felt that the correct area had been sampled. A secure guero top hat clip was placed. The patient tolerated the procedure in stable condition. The specimen is being sent to pathology. The patient will follow-up with Dr. Valdes in 1 week. CHACHA
== END ==
LOC: RADMAMWWP 07:03
PROVIDERS: ATTEND Surgery
DX: N60.11 Diffuse cystic mastopathy of right breast (principal); N60.91 Unspecified benign mammary dysplasia of right breast; E03.9 Hypothyroidism, unspecified; K21.9 Gastro-esophageal reflux disease without esophagitis; H91.90 Unspecified hearing loss, unspecified ear; E78.5 Hyperlipidemia, unspecified; F10.20 Alcohol dependence, uncomplicated; Z85.3 Personal history of malignant neoplasm of breast; Z92.3 Personal history of irradiation; Z87.891 Personal history of nicotine dependence; Z78.0 Asymptomatic menopausal state; Z90.12 Acquired absence of left breast and nipple; Z85.41 Personal history of malignant neoplasm of cervix uteri; Z85.42 Personal history of malignant neoplasm of other parts of uterus; Z79.890 Hormone replacement therapy; Z79.899 Other long term (current) drug therapy
CPT/HCPCS: 88305; 77065; 19081; A4648; G0279; J2001; 77061

== ENCOUNTER → 2022-12-16 | Outpatient (CLI) | payer MEDICARE ==
[2022-12-16 08:52] VITALS: RESP 17
--- NOTE | 2022-12-16 09:44 | P.PCN ---
Date of Procedure: 12/16/22 Preoperative Diagnosis: Microcalcifications of concern medial aspect right breast Postoperative Diagnosis: Same Procedure(s) Performed: Right breast stereotactic core biopsy Anesthesia: local Surgeon: Davina Ford Pathology: other (Breast tissue with microcalcifications of concern identified, the coarse calcifications were seen smaller calcifications were not as well seen and this was reviewed with radiology and it was felt the area of concern had been adequately sampled) Condition: stable Disposition: same day Indications for Procedure: Microcalcifications of concern right breast Operative Findings: Radiographic specimen reveals microcalcifications of concern Description of Procedure: The patient was brought to the stereotactic core biopsy room. She was positioned prone on the lo-rad table. A vamper film was obtained. A medial to lateral approach was utilized. The area of concern was identified. The lesion was targeted. The breast was prepped using Betadine. 10 mL of 1% lidocaine and 20 mL of half percent lidocaine with epinephrine was used to anesthetize the area of concern. A 9-gauge vacuum-assisted core rotating biopsy needle was driven to the correct coordinates. A prefire film was obtained and the needle was noted to be in the correct location. The needle was fired. A post-fire film was obtained and the needle was noted to be in the correct location. 13 core biopsy specimens were obtained. Radiograph of the specimen revealed the calcifications of concern. The specimen was reviewed with Dr. Zuniga from radiology as coarse calcifications were seen best in our biopsy specimen. He felt that the correct area had been sampled. A secure guero top hat clip was placed. The patient tolerated the procedure in stable condition. The specimen is being sent to pathology. The patient will follow-up with Dr. Valdes in 1 week.
== END ==
LOC: WWCWWP 08:34
PROVIDERS: ATTEND Surgery
DX: R92.0 Mammographic microcalcification found on diagnostic imaging of breast (principal); Z87.891 Personal history of nicotine dependence

== ENCOUNTER → 2023-01-06 | Outpatient (CLI) | payer MEDICARE ==
[2023-01-06 10:40] VITALS: BP 150/83; PULSE 71; RESP 17; TEMP 97.9
--- NOTE | 2023-01-06 11:30 | P.PN ---
Subjective Progress Note Date: 01/06/23 Principal diagnosis: Fibrocystic breast changes Kassandra is 72-year-old white female status post right breast stereotactic core biopsy on 6822. Pathology was benign concordant. The patient does have a strong family history of cancer and is interested in meeting with a genetic counselor. She tolerated the core biopsy without difficulty. Objective - Vital Signs Vital signs: Vital Signs Temp 97.9 F 01/06/23 10:37 Pulse 71 01/06/23 10:37 Resp 17 01/06/23 10:37 BP 150/83 01/06/23 10:37 Pulse Ox 98 01/06/23 10:37 FiO2 Intake & Output 01/05/23 01/06/23 01/06/23 18:59 06:59 18:59 Weight 72.121 kg - Constitutional General appearance: Present: cooperative - EENT Eyes: Present: EOMI ENT: Present: hard of hearing - Neck Neck: Present: normal ROM - Respiratory Respiratory: bilateral: CTA - Cardiovascular Rhythm: regular Heart sounds: normal: S1, S2 - Integumentary Integumentary Comment(s): Biopsies site right breast clean and dry no evidence of infection or hematoma - Musculoskeletal Musculoskeletal: Present: gait normal - Psychiatric Psychiatric: Present: A&O x's 3 Assessment and Plan Assessment: Impression/Plan: Prior history of left breast cancer pathology requested Stereo biopsy right breast benign concordant Patient is interested in genetic counseling and she has been given the information for this Repeat right breast mammogram and examination in 6 months CC: Jessica Lucio
== END ==
LOC: WWCWWP 10:28
PROVIDERS: ATTEND Surgery
DX: N60.11 Diffuse cystic mastopathy of right breast (principal); Z85.3 Personal history of malignant neoplasm of breast; Z87.891 Personal history of nicotine dependence

== ENCOUNTER → 2023-06-20 | Outpatient (CLI) | payer MEDICARE ==
--- NOTE | 2023-06-28 10:00 | MM ---
Reason for Exam: Hx of breast cancer, conservation therapy. Last screening mammogram was performed 9 month(s) ago. Patient History: Menarche at age 15. First Full-Term at age 23. Left ovary removed at age 46. Right ovary removed at age 46. Hysterectomy at age 46. Postmenopausal. Breast cancer, left, age 43. Ovarian cancer, age 46. Breast cancer, left, age 42. Previous chest radiation therapy at age 43. 1993, Malignant Excisional Biopsy on the left side. 12/16/2022, Benign MG stereo VAD BX RT on the right side. Prior Study Comparison: 04/30/2020 Bilateral Screening Mammogram, [facility]. 05/05/2020 Left Diagnostic Mammogram, [facility]. 05/06/2021 Bilateral Screening Mammogram, [facility]. 05/12/2022 Bilateral Screening Mammogram, [facility]. 06/09/2022 Right Diagnostic Mammogram, [facility]. 09/08/2022 Right Diagnostic Mammogram, [facility]. 09/08/2022 Right US breast workup RT - 2, [facility]. 12/16/2022 Right MG 3D diag mammo w/cad RT, [facility]. Tissue Density: The breast tissue is heterogeneously dense. This may lower the sensitivity of mammography. Findings: Analyzed By CAD. Postsurgical and posttreatment change left breast. Benign fat necrosis and vascular calcifications on the left. Additional vascular calcifications on the right. Microclip medial right breast from recent biopsy. Grouped punctate appearing microcalcifications in the central outer aspect of the right breast remain unchanged for 6 months. Ongoing follow-up recommended. Otherwise, no significant change. Overall Assessment: Probably benign, BI-RAD 3 Management: Diagnostic Mammogram of the right breast in 6 months. . Results were given to the patient verbally at the time of exam. Patient should continue monthly self-breast exams. A clinical breast exam by your physician is recommended on an annual basis. This exam should not preclude additional follow-up of suspicious palpable abnormalities. Electronically signed and approved by: Anusha Zuniga M.D. Radiologist
== END | disposition home or self-care (01) ==
LOC: RADMAMWWP 12:32
PROVIDERS: ATTEND Surgery
DX: R92.333 Mammographic heterogeneous density, bilateral breasts (principal); R92.0 Mammographic microcalcification found on diagnostic imaging of breast; Z85.3 Personal history of malignant neoplasm of breast; Z78.0 Asymptomatic menopausal state
CPT/HCPCS: 77066; G0279; 77062

== ENCOUNTER → 2023-07-14 | Outpatient (CLI) | payer MEDICARE ==
[2023-07-14 14:36] VITALS: BP 117/77; PULSE 84; RESP 18; TEMP 98.1
--- NOTE | 2023-07-14 14:47 | P.PN ---
Subjective Progress Note Date: 07/14/23 Principal diagnosis: fibrocystic breast changes 07-14-23 Right breast microcalcifications of concern on radiograph from [id number] Kassandra is a 71-year-old white female seen in consultation for Jessica Lucio regarding calcifications of concern on a right breast mammogram performed in May 2022. She had a bilateral mammogram on which led to additional views of the right breast. The patient states she then went to [place]; and in [place] she had a repeat right breast mammogram, they also did an ultrasound. She was told to wait 6 months to see if it changed. This was done in October 2022. She presented for further evaluation of the calcifications which had originally been noted on the May mammogram of her right breast. The patient did not feel any lumps masses or nodules of concern in either breast. She had a left breast lumpectomy and sentinel node biopsy in approximately 1993, she does not remember who the surgeon was or the stage of the disease.. She did receive radiation therapy. She did not receive any chemotherapy or hormone therapy. She is not following with any safety compliance specialist with respect to this. She has not had any other surgery on her breasts. She is not complaining of any recent trauma or infection of the breast. She had a stero biopsy on 12-16-22 which was benign concordant 06-20-23 Bilateral mammogram BIRAD 3 repeat right breast mammogram in 6 months, I'm she is not complaining of any new lumps masses or nodules of concern in either breast. Caffeine: coffee 4 cups/day nicotine: none stopped in 2009 used to smoke 1 Pack/week chocolate: occasional BCP: about 2 years Family History: mother: at 35 ? type think stomach cancer father: colon, thyroid, and a third type ? type sister: pancreatic within 3 weeks Hormonal History: menarche: 15 breast fed: no, age at first : 23 menopause: hysterectomy at 46 took ovaries, done for precancer Surgical History: Right eye cataract lens implant Left breast lumpectomy and sentinel node biopsy Total abdominal hysterectomy Lipoma posterior neck Bilateral ear surgery for tumors Hiatal hernia Tonsillectomy Medical History: hypothryoid decreased hearing GERD high cholesterol Social History: nicotine: as above alcohol: 2/year drugs:none - Constitutional Constitutional: Denies chills, Denies fever - EENT Eyes: right as per HPI Ears: bilateral: decreased hearing, tinnitus Ears, nose, mouth and throat: Denies headache, Denies sore throat - Breasts Breasts: bilateral: as per HPI - Cardiovascular Cardiovascular: Reports shortness of breath - Respiratory Respiratory: Denies cough, Denies 7 - Gastrointestinal Gastrointestinal: Reports as per HPI - Genitourinary (Female) Genitourinary: Denies dysuria, Denies hematuria - Menstruation Menstruation: Reports post hysterectomy - Musculoskeletal Musculoskeletal: Reports myalgias - Integumentary Integumentary: Reports pruritus, Reports rash - Neurological Neurological: Denies numbness, Denies weakness - Psychiatric Psychiatric: Denies anxiety, Denies depression - Endocrine Endocrine: Reports as per HPI - Hematologic/Lymphatic Comment: none - Allergic/Immunologic Allergic/Immunologic: Reports seasonal allergies Past Medical History Past Medical History: Cancer, GERD/Reflux, Hearing Disorder / Deafness, Hyperlipidemia, Osteoarthritis (OA), Thyroid Disorder Additional Past Medical History / Comment(s): Left BREAST CANCER,CERVICAL CANCER, UTERINE CANCER, [place]ILKAT History of Any Multi-Drug Resistant Organisms: None Reported Past Surgical History: Breast Surgery, Hysterectomy, Tonsillectomy Additional Past Surgical History / Comment(s): LIPOMA REMOVED FROM UPPER B ACK,LEFT LUMPECTOMY with radiation. EAR SURGERY RIGHT AND LEFT, CATARACT RIGHT EYE WITH IMPLANT, egd Past Anesthesia/Blood Transfusion Reactions: No Reported Reaction Past Psychological History: No Psychological Hx Reported Smoking Status: Former smoker Past Alcohol Use History: Rare Additional Past Alcohol Use History / Comment(s): STARTED SMOKING AT AGE 17 SMOKED ON AND OFF QUIT SMOKING 2000 SMOKED 1 CIG A DAY Past Drug Use History: None Reported - Past Family History Mother Family Medical History: Cancer Father Family Medical History: Cancer Sister(s) Family Medical History: Cancer Medications and Allergies Home Medications Medication Instructions Recorded Confirmed Type Levothyroxine Sodium [Synthroid] 88 mcg PO DAILY 05/21/19 12/16/22 History Pravastatin Sodium [Pravachol] 20 mg PO DAILY 05/21/19 12/16/22 History Omeprazole 40 mg PO DAILY #30 capsule. 07/27/19 12/16/22 Rx Allergies Allergy/AdvReac Type Severity Reaction Status Date / Time No Known Allergies Allergy Verified 12/16/22 07:19 Objective - Vital Signs Vital signs: Vital Signs Temp 98.1 F 07/14/23 14:27 Pulse 84 07/14/23 14:27 Resp 18 07/14/23 14:27 BP 117/77 07/14/23 14:27 Pulse Ox 99 07/14/23 14:27 FiO2 Intake & Output 07/13/23 07/14/23 07/14/23 18:59 06:59 18:59 Weight 65.771 kg - Constitutional General appearance: Present: cooperative - EENT Eyes: Present: EOMI ENT: Present: hearing grossly normal - Neck Neck: Present: normal ROM - Respiratory Respiratory: bilateral: CTA - Cardiovascular Heart sounds: normal: S1, S2 - Gastrointestinal General gastrointestinal: Present: soft - Integumentary Integumentary: Present: normal turgor - Musculoskeletal Musculoskeletal: Present: gait normal - Psychiatric Psychiatric: Present: A&O x's 3, appropriate affect, intact judgment & insight - Additional findings Additional findings: Breast Exam: BRA: 38C Inspection: Left breast smaller than right breast related to prior lumpectomy and radiation therapy, right nipple inversion Palpation: Right breast: Multi-positional examination no dominant masses or nodules of concern, dense breast Right axilla: No adenopathy of concern, nipple is inverted on the right Left breast: Post surgical and radiation changes, multiple positional exam no dominant masses or nodules of concern Left axilla: No adenopathy of concern Assessment and Plan Assessment: Impression: Doing well status post left breast lumpectomy and radiation therapy 1995 no evidence of recurrence right breast mammogra to repeat in 6 monhts Plan: Right breast mammogram to be repeated in 6 months with follow-up at that time Bilateral mammogram 1 year CC: Jessica Lucio
== END ==
LOC: WWCWWP 14:18
PROVIDERS: ATTEND Surgery
DX: N60.11 Diffuse cystic mastopathy of right breast (principal); R92.0 Mammographic microcalcification found on diagnostic imaging of breast; E78.00 Pure hypercholesterolemia, unspecified; K21.9 Gastro-esophageal reflux disease without esophagitis; E03.9 Hypothyroidism, unspecified; M19.90 Unspecified osteoarthritis, unspecified site; Z86.69 Personal history of other diseases of the nervous system and sense organs; Z79.890 Hormone replacement therapy; Z85.3 Personal history of malignant neoplasm of breast; Z85.41 Personal history of malignant neoplasm of cervix uteri; Z85.42 Personal history of malignant neoplasm of other parts of uterus; Z87.891 Personal history of nicotine dependence; Z90.710 Acquired absence of both cervix and uterus

== ENCOUNTER → 2023-09-07 | Outpatient (CLI) | payer MEDICARE ==
--- NOTE | 2023-09-08 14:25 | MR ---
EXAMINATION TYPE: MR shoulder RT wo con DATE OF EXAM: 09/07/2023 COMPARISON: None HISTORY: Right shoulder pain and limited movement for 6 months. Complete rotator cuff tear. TECHNIQUE: Multiplanar, multisequence imaging of the right shoulder is performed without contrast. FINDINGS: Rotator Cuff: Some increased signal involving the anterior distal fibers of the supraspinatus tendon. Infraspinatus tendon is intact. Subscapularis tendon is intact. Rotator cuff muscle bulk is preserve d. Acromioclavicular Joint: Mild to moderate capsular hypertrophy and spurring. Moderate narrowing parti cularly posteriorly with subchondral cystic change. The underlying fat plane is maintained. Glenohumeral Joint: Moderate size joint effusion. No significant spurring. Labrum: Fraying and increased signal superior labrum consistent with degenerative tear. Biceps Tendon: The long head of biceps is in normal location within bicipital groove. Increased signa l in the intracapsular portion. Bone marrow signal: No focal abnormal marrow signal is appreciated. Other: No additional significant abnormality is appreciated. IMPRESSION: 1. Tendinosis/partial tearing of the distal supraspinatus tendon. 2. 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 Tendinosis/partial tearing of the intracapsu lar portion of the long head of biceps tendon. 3. Moderate size glenohumeral joint effusion.
== END | disposition home or self-care (01) ==
LOC: RADMRIMAIN 14:12
PROVIDERS: ATTEND Orthopaedic Surgery
DX: M67.813 Other specified disorders of tendon, right shoulder (principal); M75.121 Complete rotator cuff tear or rupture of right shoulder, not specified as traumatic; M25.811 Other specified joint disorders, right shoulder; M25.411 Effusion, right shoulder

== ENCOUNTER → 2023-12-26 | Outpatient (CLI) | payer MEDICARE ==
--- NOTE | 2023-12-26 13:17 | MM ---
Reason for Exam: Follow-up at short interval from prior study. Last screening mammogram was performed 6 month(s) ago. Patient History: Menarche at age 15. First Full-Term at age 23. Left ovary removed at age 46. Right ovary removed at age 46. Hysterectomy at age 46. Postmenopausal. Breast cancer, left, age 43. Ovarian cancer, age 46. Breast cancer, left, age 42. Previous chest radiation therapy at age 43. 1993, Malignant Excisional Biopsy on the left side. 12/16/2022, Benign MG stereo VAD BX RT on the right side. Prior Study Comparison: 09/08/2022 Right Diagnostic Mammogram, [facility]. 12/16/2022 Right MG 3D diag mammo w/cad RT, [facility]. 06/20/2023 Bilateral MG 3D diag mammo w/cad [place], [facility]. Tissue Density: Right: The breasts are heterogeneously dense, which may obscure small masses. Findings: Analyzed By CAD. Pattern is stable. Benign vascular calcifications are present. There are scattered and regional calcifications unchanged from prior. Core marker is within the right breast. No suspicious groups of microcalcifications, spiculated or lobular masses, architectural distortion or other secondary signs of malignancy are mammographically apparent. Overall Assessment: Benign, BI-RAD 2 Management: Screening Mammogram of both breasts in 6 months. A negative mammogram report should not preclude additional follow up of suspicious palpable abnormalities. Patient should continue monthly self breast exam. A clinical breast exam by your physician is recommended on an annual basis and results should be correlated with mammographic findings. Note on Jacqueline scores and lifetime risk: 1. A Jacqueline score greater than 3% is considered moderate risk. If this is the case, consider specialist referral to assess eligibility for a risk reducing agent. 2. If overall lifetime risk for the development of breast cancer is 20% or higher, the patient may qualify for future screening with alternating mammogram and breast MRI. Electronically signed and approved by: Derek Clark D.O. Radiologis
== END | disposition home or self-care (01) ==
LOC: RADMAMWWP 12:50
PROVIDERS: ATTEND Surgery
DX: R92.8 Other abnormal and inconclusive findings on diagnostic imaging of breast (principal)
CPT/HCPCS: 77065; G0279; 77061

== ENCOUNTER → 2024-01-09 | Outpatient (CLI) | payer MEDICARE ==
[2024-01-09 11:50] VITALS: BP 113/76; PULSE 92; RESP 18; TEMP 98.2
--- NOTE | 2024-01-09 12:01 | P.PN ---
Subjective Progress Note Date: 01/09/24 left breast lumpectomy 1993/ right breast calcifications of concern 202101-09-24 Right breast microcalcifications of concern on radiograph from [id number] Kassandra is a 71-year-old white female seen in consultation for Jessica Lucio regarding calcifications of concern on a right breast mammogram performed in May 2022. She had a bilateral mammogram on which led to additional views of the right breast. The patient states she then went to [place]; and in [place] she had a repeat right breast mammogram, they also did an ultrasound. She was told to wait 6 months to see if it changed. This was done in October 2022. She presented for further evaluation of the calcifications which had originally been noted on the May mammogram of her right breast. The patient did not feel any lumps masses or nodules of concern in either breast. She had a left breast lumpectomy and sentinel node biopsy in approximately 1993, she does not remember who the surgeon was or the stage of the disease.. She did receive radiation therapy. She did not receive any c hemotherapy or hormone therapy. She is not following with any veterinary milk specialist with respect to this. She has not had any other surgery on her breasts. She is not complaining of any recent trauma or infection of the breast. She had a stero biopsy on 12-16-22 which was benign concordant 06-20-23 Bilateral mammogram BIRAD 3 repeat right breast mammogram in 6 months, she is not complaining of any new lumps masses or nodules of concern in either breast. repeat right breast mammogram on 12-26-23 BIRAD 2, personally reviewed, she is not complaining of any new lumps masses or nodules of concern in either breast Caffeine: coffee 4 cups/day nicotine: none stopped in 2009 used to smoke 1 Pack/week chocolate: occasional BCP: about 2 years Family History: mother: at 35 ? type think stomach cancer father: colon, thyroid, and a third type ? type sister: pancreatic within 3 weeks Hormonal History: menarche: 15 breast fed: no, age at first : 23 menopause: hysterectomy at 46 took ovaries, done for precancer Surgical History: Right eye cataract lens implant Left breast lumpectomy and sentinel node biopsy Total abdominal hysterectomy Lipoma posterior neck Bilateral ear surgery for tumors Hiatal hernia Tonsillectomy right shoulder rotator cuff surgery Medical History: hypothryoid decreased hearing GERD high cholesterol Social History: nicotine: as above alcohol: 2/year drugs:none - Constitutional Constitutional: Denies chills, Denies fever - EENT Eyes: right as per HPI Ears: bilateral: decreased hearing, tinnitus Ears, nose, mouth and throat: Denies headache, Denies sore throat - Breasts Breasts: bilateral: as per HPI - Cardiovascular Cardiovascular: Reports shortness of breath - Respiratory Respiratory: Denies cough - Gastrointestinal Gastrointestinal: Reports as per HPI - Genitourinary (Female) Genitourinary: Denies dysuria, Denies hematuria - Menstruation Menstruation: Reports post hysterectomy - Musculoskeletal Musculoskeletal: Reports myalgias - Integumentary Integumentary: Reports pruritus, Reports rash - Neurological Neurological: Denies numbness, Denies weakness - Psychiatric Psychiatric: Denies anxiety, Denies depression - Endocrine Endocrine: Reports as per HPI - Hematologic/Lymphatic Comment: none - Allergic/Immunologic Allergic/Immunologic: Reports seasonal allergies Past Medical History Past Medical History: Cancer, GERD/Reflux, Hearing Disorder / Deafness, Hyperlipidemia, Osteoarthritis (OA), Thyroid Disorder Additional Past Medical History / Comment(s): Left BREAST CANCER,CERVICAL CANCER, UTERINE CANCER, [place] History of Any Multi-Drug Resistant Organisms: None Reported Past Surgical History: Breast Surgery, Hysterectomy, Tonsillectomy Additional Past Surgical History / Comment(s): LIPOMA REMOVED FROM UPPER BACK,LEFT LUMPECTOMY with radiation. EAR SURGERY RIGHT AND LEFT, CATARACT RIGHT EYE WITH IMPLANT, egd Past Anesthesia/Blood Transfusion Reactions: No Reported Reaction Past Psychological History: No Psychological Hx Reported Smoking Status: Former smoker Past Alcohol Use History: Rare Additional Past Alcohol Use History / Comment(s): STARTED SMOKING AT AGE 17 SMOKED ON AND OFF QUIT SMOKING 1999 SMOKED 1 CIG A DAY Past Drug Use History: None Reported - Past Family History Mother Family Medical History: Cancer Father Family Medical History: Cancer Sister(s) Family Medical History: Cancer Medications and Allergies Home Medications Medication Instructions Recorded Confirmed Type Levothyroxine Sodium [Synthroid] 88 mcg PO DAILY 05/21/19 12/16/22 History Pravastatin Sodium [Pravachol] 20 mg PO DAILY 05/21/19 12/16/22 History Omeprazole 40 mg PO DAILY #30 capsule. 07/27/19 12/16/22 Rx Allergies Allergy/AdvReac Type Severity Reaction Status Date / Time No Known Allergies Allergy Verified 12/16/22 07:19 Objective - Vital Signs Vital signs: Vital Signs Temp 98.2 F 01/09/24 11:46 Pulse 92 01/09/24 11:46 Resp 18 01/09/24 11:46 BP 113/76 01/09/24 11:46 Pulse Ox 98 01/09/24 11:46 FiO2 Intake & Output 01/08/24 01/09/24 01/09/24 18:59 06:59 18:59 Weight 61.235 kg - Constitutional General appearance: Present: cooperative - EENT Eyes: Present: EOMI ENT: Present: hearing grossly normal - Neck Neck: Present: normal ROM - Respiratory Respiratory: bilateral: CTA - Cardiovascular Heart sounds: normal: S1, S2 - Integumentary Integumentary: Present: normal turgor - Musculoskeletal Musculoskeletal: Present: gait normal - Psychiatric Psychiatric: Present: A&O x's 3, appropriate affect, intact judgment & insight - Additional findings Additional findings: Breast Exam: BRA: 38C Inspection: Left breast smaller than right breast related to prior lumpectomy and radiation therapy, right nipple inversion Palpation: Right breast: Multi-positional examination no dominant masses or nodules of concern, dense breast Right axilla: No adenopathy of concern, nipple is inverted on the right Left breast: Post surgical and radiation changes, multiple positional exam no dominant masses or nodules of concern Left axilla: No adenopathy of concern Assessment and Plan Assessment: Impression: Doing well status post left breast lumpectomy and radiation therapy 1995 no evidence of recurrence right breast mammogram 12-26-23 BIRAD 2 personnaly interpreted and reviewed, bilateral mammogram in 6 months Plan: Bilateral mammogram June 2024 with appointment Patient to follow-up sooner any questions or concerns CC: Jessica Lucio
== END ==
LOC: WWCWWP 11:04
PROVIDERS: ATTEND Surgery
DX: R92.0 Mammographic microcalcification found on diagnostic imaging of breast (principal); Z87.891 Personal history of nicotine dependence; Z85.3 Personal history of malignant neoplasm of breast; Z92.3 Personal history of irradiation

== ENCOUNTER → 2024-06-28 | Outpatient (CLI) | payer MEDICARE ==
--- NOTE | 2024-06-28 11:16 | MM ---
Reason for Exam: Follow-up at short interval from prior study. Last screening mammogram was performed 12 month(s) ago. Patient History: Menarche at age 15. First Full-Term at age 23. Left ovary removed at age 46. Right ovary removed at age 46. Hysterectomy at age 46. Postmenopausal. Breast cancer, left, age 43. Ovarian cancer, age 46. Breast cancer, left, age 42. Previous chest radiation therapy at age 43. 1993, Malignant Excisional Biopsy on the left side. 12/16/2022, Benign MG stereo VAD BX RT on the right side. Prior Study Comparison: 04/30/2020 Bilateral Screening Mammogram, [facility]. 05/05/2020 Left Diagnostic Mammogram, [facility]. 05/06/2021 Bilateral Screening Mammogram, [facility]. 05/12/2022 Bilateral Screening Mammogram, [facility]. 06/09/2022 Right Diagnostic Mammogram, [facility]. 09/08/2022 Right Diagnostic Mammogram, [facility]. 09/08/2022 Right US breast workup RT - 2, [facility]. 12/16/2022 Right MG 3D diag mammo w/cad RT, [facility]. 06/20/2023 Bilateral MG 3D diag mammo w/cad [place], [facility]. 12/26/2023 Right MG 3D diag mammo w/cad RT, [facility]. Tissue Density: The breasts are heterogeneously dense, which may obscure small masses. Findings: Analyzed By CAD. Benign calcifications are seen bilaterally. Postlumpectomy changes identified. No recurrent mass or new distortion. No skin thickening seen. Overall Assessment: Benign, BI-RAD 2 Management: Diagnostic Mammogram of both breasts in 1 year. . Results were given to the patient verbally at the time of exam. Patient should continue monthly self-breast exams. A clinical breast exam by your physician is recommended on an annual basis. This exam should not preclude additional follow-up of suspicious palpable abnormalities. Note on Jacqueline scores and lifetime risk: 1. A Jacqueline score greater than 3% is considered moderate risk. If this is the case, consider specialist referral to assess eligibility for a risk reducing agent. 2. If overall lifetime risk for the development of breast cancer is 20% or higher, the patient may qualify for future screening with alternating mammogram and breast MRI. [facility], , 06/28/2024 11:13 AM. Electronically signed and approved by: Rene Gavin M.D. Radiologis
== END | disposition home or self-care (01) ==
LOC: RADMAMWWP 10:35
PROVIDERS: ATTEND Surgery
DX: R92.8 Other abnormal and inconclusive findings on diagnostic imaging of breast (principal); Z90.722 Acquired absence of ovaries, bilateral; Z78.0 Asymptomatic menopausal state; Z85.3 Personal history of malignant neoplasm of breast; R92.333 Mammographic heterogeneous density, bilateral breasts
CPT/HCPCS: 77066; G0279; 77062

== ENCOUNTER → 2024-07-20 | Outpatient (CLI) | payer MEDICARE ==
[2024-07-20 12:33] VITALS: BP 123/68; PULSE 77; RESP 17; TEMP 98.1
--- NOTE | 2024-07-20 12:49 | P.PN ---
Subjective Progress Note Date: 07/20/24 07-20-24 left breast lumpectomy 1993 Right breast microcalcifications of concern on radiograph from [id number] Joy a 73 year old female she had a left breast lumpectomy and sentinel node biopsy in approximately 1993, she does not remember who the surgeon was or the stage of the disease.. She did receive radiation therapy. She did not receive any chemotherapy or hormone therapy. She is not following with any coverage specialist rn with respect to this. She is not complaining of any recent trauma or infection of the breast. She had a stero biopsy of the right breast for calcifications on 12-16-22 which was benign concordant Bilateral mammogram on 06-28-24 BIRAD 2 personally interpreted Caffeine: coffee 4 cups/day nicotine: none stopped in 2009 used to smoke 1 Pack/week chocolate: occasional BCP: about 2 years Family History: mother: at 35 ? type think stomach cancer father: colon, thyroid, and a third type ? type sister: pancreatic within 3 weeks Hormonal History: menarche: 15 breast fed: no, age at first : 23 menopause: hysterectomy at 46 took ovaries, done for precancer Surgical History: Right eye cataract lens implant Left breast lumpectomy and sentinel node biopsy Total abdominal hysterectomy Lipoma posterior neck Bilateral ear surgery for tumors Hiatal hernia Tonsillectomy right shoulder rotator cuff surgery Medical History: hypothryoid decreased hearing GERD high cholesterol Social History: nicotine: as above alcohol: 2/year drugs:none - Constitutional Constitutional: Denies chills, Denies fever - EENT Eyes: right as per HPI Ears: bilateral: decreased hearing, tinnitus Ears, nose, mouth and throat: Denies headache, Denies sore throat - Breasts Breasts: bilateral: as per HPI - Cardiovascular Cardiovascular: Reports shortness of breath - Respiratory Respiratory: Denies cough - Gastrointestinal Gastrointestinal: Reports as per HPI - Genitourinary (Female) Genitourinary: Denies dysuria, Denies hematuria - Menstruation Menstruation: Reports post hysterectomy - Musculoskeletal Musculoskeletal: Reports myalgias - Integumentary Integumentary: Reports pruritus, Reports rash - Neurological Neurological: Denies numbness, Denies weakness - Psychiatric Psychiatric: Denies anxiety, Denies depression - Endocrine Endocrine: Reports as per HPI - Hematologic/Lymphatic Comment: none - Allergic/Immunologic Allergic/Immunologic: Reports seasonal allergies Past Medical History Past Medical History: Cancer, GERD/Reflux, Hearing Disorder / Deafness, Hyperlipidemia, Osteoarthritis (OA), Thyroid Disorder Additional Past Medical History / Comment(s): Left BREAST CANCER,CERVICAL CANCER, UTERINE CANCER, THLOPTHLOCCO [place] History of Any Multi-Drug Resistant Organisms: None Reported Past Surgical History: Breast Surgery, Hysterectomy, Tonsillectomy Additional Past Surgical History / Comment(s): LIPOMA REMOVED FROM UPPER BACK,LEFT LUMPECTOMY with radiation. EAR SURGERY RIGHT AND LEFT, CATARACT RIGHT EYE WITH IMPLANT, egd Past Anesthesia/Blood Transfusion Reactions: No Reported Reaction Past Psychological History: No Psychological Hx Reported Smoking Status: Former smoker Past Alcohol Use History: Rare Additional Past Alcohol Use History / Comment(s): STARTED SMOKING AT AGE 17 SMOKED ON AND OFF QUIT SMOKING 2000 SMOKED 1 CIG A DAY Past Drug Use History: None Reported - Past Family History Mother Family Medical History: Cancer Father Family Medical History: Cancer Sister(s) Family Medical History: Cancer Medications and Allergies Home Medications Medication Instructions Recorded Confirmed Type Levothyroxine Sodium [Synthroid] 88 mcg PO DAILY 05/21/19 12/16/22 History Pravastatin Sodium [Pravachol] 20 mg PO DAILY 05/21/19 12/16/22 History Omeprazole 40 mg PO DAILY #30 capsule. 07/27/19 12/16/22 Rx Allergies Allergy/AdvReac Type Severity Reaction Status Date / Time No Known Allergies Allergy Verified 12/16/22 07:19 Objective - Vital Signs Vital signs: Vital Signs Temp 98.1 F 07/20/24 12:30 Pulse 77 07/20/24 12:30 Resp 17 07/20/24 12:30 BP 123/68 07/20/24 12:30 Pulse Ox 98 07/20/24 12:30 FiO2 Intake & Output 07/19/24 07/20/24 07/20/24 18:59 06:59 18:59 Weight 62.142 kg - Constitutional General appearance: Present: cooperative - EENT Eyes: Present: EOMI ENT: Present: hearing grossly normal - Neck Neck: Present: normal ROM - Respiratory Respiratory: bilateral: CTA - Cardiovascular Rhythm: regular Heart sounds: normal: S1, S2 - Integumentary Integumentary: Present: normal turgor - Musculoskeletal Musculoskeletal: Present: gait normal - Psychiatric Psychiatric: Present: A&O x's 3, appropriate affect, intact judgment & insight - Additional findings Additional findings: Breast Exam: BRA: 38C Inspection: Left breast smaller than right breast related to prior lumpectomy and radiation therapy, right nipple inversion Palpation: Right breast: Multi-positional examination no dominant masses or nodules of concern, dense breast Right axilla: No adenopathy of concern, nipple is inverted on the right Left breast: Post surgical and radiation changes, multiple positional exam no dominant masses or nodules of concern Left axilla: No adenopathy of concern Assessment and Plan Assessment: Impression: Doing well status post left breast lumpectomy and radiation therapy 1995 no evidence of recurrence bilateral mammogram 06-28-24 BIRAD 2, personally interpreted Plan: Bilateral mammogram June 2025 with appointment Patient to follow-up sooner any questions or concerns CC: Jessica Lucio
== END ==
LOC: WWCWWP 11:41
PROVIDERS: ATTEND Surgery
DX: Z48.3 Aftercare following surgery for neoplasm (principal); R92.8 Other abnormal and inconclusive findings on diagnostic imaging of breast; Z51.0 Encounter for antineoplastic radiation therapy; Z87.891 Personal history of nicotine dependence